=== PATIENT | female | born 1950 | race Caucasian/White ===

== ENCOUNTER 2016-08-14 12:20 | Emergency (ER) | payer MEDICARE ==
[2016-08-14] MEDS ORDERED: IBUPROFEN 600 MG TABLET ONE (13:23)
[2016-08-14] MEDS ORDERED: ACETAMINOPHEN 500 MG TABLET ONE (13:23)
--- NOTE | 2016-08-14 13:52 | RAD ---
FEMUR LEFT COMPARISON: None. HISTORY: Ground level fall. Left femur pain. Views: Left femur AP and lateral FINDINGS: Bones: Normal. Joints: No acute finding. Satisfactory appearance of left total knee arthroplasty. Normal left hip. Soft tissues: Normal. IMPRESSION: Normal examination.
== END 2016-08-14 14:21 | disposition home or self-care (01) ==
LOC: ED 12:20
DX: S76.312A Strain of muscle, fascia and tendon of the posterior muscle group at thigh level, left thigh, initial encounter (principal); E03.9 Hypothyroidism, unspecified; W01.10XA Fall on same level from slipping, tripping and stumbling with subsequent striking against unspecified object, initial encounter
CPT/HCPCS: 73552; 99283 ×2; A9270 ×2